=== PATIENT | male | born 1940 | race Caucasian/White ===

== ENCOUNTER 2020-04-09 12:50 | Day surgery (SDC) | payer MEDICARE, OTHER ==
[~2020-04-09] VITALS: Ht 182.9 cm; Wt 68.6 kg
[~2020-04-09 12:50] MED LIST: Flomax0.4 MG PO; IBUP200 PO; LATA.005SO BOTHEYES; SERT100 PO
== END 2020-04-09 15:33 | disposition home or self-care (01) ==
LOC: ORSCSDS 12:50
PROVIDERS: Internal Medicine Gastroenterology
PROC: 0DJD8ZZ Inspection of Lower Intestinal Tract, Via Natural or Artificial Opening Endoscopic (ICD-10-PCS; principal; 2020-04-09 15:00)
DX: Z12.11 Encounter for screening for malignant neoplasm of colon (principal); Z86.010 Personal history of colon polyps; K57.30 Diverticulosis of large intestine without perforation or abscess without bleeding; K64.8 Other hemorrhoids; Z79.899 Other long term (current) drug therapy
CPT/HCPCS: J2704; J7120

== ENCOUNTER 2024-11-08 19:20 | Emergency (ER) | payer MEDICARE, OTHER ==
[~2024-11-08] VITALS: Ht 182.9 cm; Wt 69.8 kg
[2024-11-08 20:07] VITALS: BP 129/88
== END 2024-11-08 21:39 | disposition home or self-care (01) ==
LOC: ER 19:20
DX: T63.301A Toxic effect of unspecified spider venom, accidental (unintentional), initial encounter (principal)
CPT/HCPCS: 99282